=== PATIENT | female | born 1945 | race Two or more races ===

== ENCOUNTER → 2017-11-15 | Outpatient (CLI) | payer MEDICARE, MEDICAID ==
[~2017-11-15] MED LIST: CHOL20002 PO; DIAZ5TAB4 PO; ENAL5TAB PO; GABA600T2 PO; HYDR-3237 PO; HYDR50TA13 PO; LINA145C PO; Lidoderm 5% Patch TD; NABU500T PO; PANT40TA5 PO; POLY17PO18 PO
== END ==
LOC: STAR 08:15
PROVIDERS: ATTEND Surgery
DX: Z01.818 Encounter for other preprocedural examination (principal); R94.31 Abnormal electrocardiogram [ECG] [EKG]
CPT/HCPCS: 93005

== ENCOUNTER → 2018-06-03 | Outpatient (CLI) | payer MEDICARE, MEDICAID ==
[~2018-06-03] MED LIST changes: -CHOL20002 PO; +CHOL200085 PO
== END | disposition home or self-care (01) ==
LOC: CFH 15:39
PROVIDERS: ATTEND Family Medicine
DX: R90.82 White matter disease, unspecified (principal); I67.82 Cerebral ischemia
CPT/HCPCS: 70551

== ENCOUNTER → 2020-08-18 | Outpatient (CLI) | payer MEDICAID, MEDICARE ==
[~2020-08-18] MED LIST changes: +CHOL20002 PO; -CHOL200085 PO; -ENAL5TAB PO; +ENAL5TAB10 PO; -GABA600T2 PO; +GABA600T7 PO; +GADOTERATE 7.5 MMOL/15 ML VIAL ONE; -HYDR50TA13 PO; +HYDR50TA99 PO; -NABU500T PO; +NABU500T7 PO; -PANT40TA5 PO; +PANT40TA6 PO
== END | disposition home or self-care (01) ==
LOC: EDSTATUS 07-16 14:11 → RAD 12:41
PROVIDERS: ATTEND Physician Assistant
DX: S83.242A Other tear of medial meniscus, current injury, left knee, initial encounter (principal); M25.462 Effusion, left knee; M17.0 Bilateral primary osteoarthritis of knee; M94.262 Chondromalacia, left knee; X58.XXXA Exposure to other specified factors, initial encounter; Y93.89 Activity, other specified; Y92.89 Other specified places as the place of occurrence of the external cause; Y99.8 Other external cause status
CPT/HCPCS: 73723; A9575